=== PATIENT | female | born 1980 | race Caucasian/White ===

== ENCOUNTER → 2023-06-12 10:10 | Outpatient (REF) | payer OTHER, SELFPAY | LOC: WDC 10:10 | PROVIDERS: ATTENDING PHYSICIAN Nurse Practitioner Adult Health; FAMILY PHYSICIAN Internal Medicine | DX: N63.10 Unspecified lump in the right breast, unspecified quadrant (principal); N63.12 Unspecified lump in the right breast, upper inner quadrant | CPT/HCPCS: 76642; 77062; 77066 ==

== ENCOUNTER → 2024-07-29 12:59 | Outpatient (REF) | payer OTHER, SELFPAY | LOC: HWWDC 12:59 | PROVIDERS: ATTENDING PHYSICIAN Obstetrics & Gynecology Gynecology; FAMILY PHYSICIAN Hospitalist | DX: Z12.31 Encounter for screening mammogram for malignant neoplasm of breast (principal) | CPT/HCPCS: 77063; 77067 ==

== ENCOUNTER 2024-10-22 11:07 | Emergency (ER) | payer OTHER, SELFPAY ==
[2024-10-22 11:15] VITALS: BP 116/72
--- NOTE | 2024-10-22 12:06 | ED.GENMED ---
History of Present Illness
General
Chief Complaint: Back Pain
Source: patient
Exam Limitations: none
Time Seen by Provider: 10/22/24 12:04
Nursing documentation reviewed up to this point in time: agreed with
History of Present Illness
History of Present Illness:
Note:
CHIEF COMPLAINT(S)
Lower back pain and chest discomfort.
HISTORY OF PRESENT ILLNESS
The patient is a 43-year-old female who presented with a chief complaint of lower back pain that started after she got out of the shower to dress herself. She reported that the pain originated in her lower back and was described as feeling like
something was inside the knot. The pain has been affecting her ability to stand. Additionally, the patient experienced chest discomfort while in the shower, which was concerning enough that she was checked for a possible cardiac event. Despite this
symptom, she stated that it wasnt accompanied by exertion, as she was not engaging in physical activity at the time. The chest discomfort initially started around 10 AM and resolved on its own. She is worried about the potential severity.
Regarding treatment, a physical exam and an EKG were performed, which indicated that the symptoms were likely not cardiac-related. She was informed that while the initial exam and EKG did not show signs of a heart attack, further investigations
would be needed to rule out any serious conditions. It was mentioned that a possible disc issue might be causing nerve compression on the affected side, leading to her lower back symptoms.
The patient expressed concern about her neck, suggesting potential pre-existing cervical issues.
PLAN
- Perform blood tests to evaluate cardiac enzymes and rule out serious conditions.
- Obtain chest X-ray to investigate chest discomfort further.
- Evaluate the lower back with imaging for possible disc issues.
- Administer aspirin to address potential pain and provide preliminary treatment for cardiac concerns.
REVIEW OF SYSTEMS
- Cardiovascular: Chest discomfort that started at around 10 AM.
- Musculoskeletal: Lower back pain, described as a knot-like feeling, affecting the ability to stand.
PHYSICAL EXAM
- General: Female, no acute distress.
- Cardiovascular: Blood pressure 116/72, heart sounds S1 and S2 normal, no murmurs detected.
- Respiratory: No respiratory distress, clear breath sounds bilaterally.
- Abdominal: Soft, non-tender, non-distended.
- Musculoskeletal: Mild tenderness to palpation at the lower back, particularly on the left side. No step-offs or deformities. Difficulty ambulating.
- Pulses: Palpable in all extremities.
Nursing notes reviewed and vital signs reviewed.
DIFFERENTIAL DIAGNOSIS
The Differential Diagnosis includes, in no particular order and is not limited to:
1. Musculoskeletal strain
2. Herniated disc
3. Nerve compression syndrome
4. Myocardial infarction
5. Costochondritis
6. Anxiety or stress-related chest pain
7. Angina
8. Esophageal spasm
9. Gastroesophageal reflux disease (GERD)
10. Pulmonary embolism
EKG
My independent EKG interpretation is:
- Time of EKG: Not specified
- Rhythm: Normal
- Heart rate: 81 bpm
- NV interval: Normal
- QRS duration: Normal
- QT interval: Normal
- [place]: Normal
- Abnormalities: No signs of ischemia
- Overall assessment: Normal EKG
EKG
No Content
CARE-UPDATE
10/22/24 - 15:11
Patient shows improvement; initial labs including troponin were negative, and the EKG was normal. Chest X-ray and other imaging yielded no significant findings. Plan to repeat troponin test. If the repeat test is negative, the plan will involve
discharging the patient with instructions to follow up with primary care for routine evaluation.
Disposition:
SUMMARY OF ENCOUNTER
The patient, a 43-year-old female, presented to the emergency department with complaints of lower back pain that started after she dressed herself post-shower and chest discomfort experienced while showering. Patient evaluation included a physical
exam and an EKG which ruled out cardiac causes, suggesting a potential musculoskeletal issue. Due to chest discomfort, further investigations were pursued to rule out cardiac and other serious conditions. Initial labs and EKG were normal, and chest
X-ray showed no significant findings.
DISPOSITION
Discharge.
ASSESSMENT
The patient�s symptoms of back pain suggest potential sciatica or a musculoskeletal strain, likely stemming from a disc issue causing nerve compression. Chest pain does not appear to be cardiac-related based on initial labs and EKG results.
PLAN
- Conduct blood tests to assess cardiac enzymes to rule out any serious underlying conditions.
- Proceed with chest X-ray for a more detailed investigation of the chest discomfort.
- Imaging of the lower back for potential disc problems.
- Administer aspirin for managing pain and providing a preliminary treatment for any potential cardiac concerns.
INDEPENDENT REVIEW OF LABS AND INTERPRETATION OF TESTS
My independent review of EKG indicates a normal rhythm, normal heart rate (81 bpm), with no signs of ischemia, suggesting a normal result overall. Initial troponin levels were negative, supporting a non-cardiac cause for chest discomfort.
PROCEDURES
Performed a physical examination and an EKG on the patient.
PATIENT EDUCATION AND COUNSELING
Discussed that the initial test results show no immediate concern for a cardiac event and that further investigation will focus on potential musculoskeletal sources for back pain. The patient was advised about the importance of following up with her
primary care provider for further directed care.
FOLLOW-UP INSTRUCTIONS
Please call the office immediately to schedule a follow-up visit with your primary care provider for a routine evaluation.
MEDICATION RECONCILIATION
Aspirin was administered for managing pain.
MEDICAL DECISION MAKING
-Complexity of Data Reviewed: Chronic conditions affecting care include past musculoskeletal issues. The differential diagnosis list includes musculoskeletal strain, herniated disc, nerve compression syndrome, myocardial infarction, costochondritis,
anxiety or stress-related chest pain, angina, esophageal spasm, GERD, pulmonary embolism.
-Data:
Category 1
My independent interpretation of EKG indicates a normal rhythm with no signs of ischemia.
Clinical information obtained from patient history and examination.
-Risk:
Consideration of Admission/Observation: Escalation of care including admission/observation was considered given the complexity and risk of the patients presenting complaint, exam findings, and/or their underlying comorbidities. However, ultimately I
feel the patient is safe for outpatient management with close follow-up. Reasoning: Work-up reassuring, does not reveal any acute life/organ-threatening processes, patients symptoms well controlled upon reevaluation, reexamination is reassuring,
vitals are stable, patient agreeable with discharge, reliable for follow-up.
DIAGNOSIS
- Sciatica, left side (M54.32)
- Chest pain, unspecified (R07.9)
Past History
Past History
ED Past Medical History: Other (leg pain ) and Other (Migraines)
ED Past Surgical History: Gynecological (D&C)
Social History
Tobacco: Non-smoker
Alcohol: Occasional
Drug: None
Personal:
Living: with family
Employment: Employed
Family History
Family History: Other
Phy Exam
Physical Exam
Physical Exam:
.
Course
Orders/Labs/Results
Orders:
Orders
10/22/24 11:19
Electrocardiogram (*1) Urgent
Reason for Study: Other
Other Reason for Exam: back
EKG- Treatment ONCE
10/22/24 12:14
IV Insert/Care/Rem.- Treatment PRN
Pulse Ox/cont/shift [RESP] Stat
Quantity: 1
10/22/24 12:18
Cardiac Monitoring- Treatment ONCE
10/22/24 12:48
Complete Blood Count/With Diff Urgent
Comprehensive Metabolic Panel Urgent
Troponin I Urgent
10/22/24 13:09
Aspirin 325 mg PO NOW STA
10/22/24 14:20
Ketorolac [Toradol] 15 mg IV NOW STA
CR Chest - 2 Views Urgent
Comment:
Reason For Exam: left side chest/back pain
Lumbar Spine Complete, 4 View [CR Lumbar Spine Comp Min 4 Vw*] Urgent
Comment:
Reason For Exam: left side low back pain
10/22/24 15:24
Troponin I Urgent
Abnormal Lab Results
10/22/24
12:48
BUN 31 H mg/dl
(7-17)
Glucose 102 H mg/dl
(70-99)
10/22/24 12:48
10/22/24 12:48
Vital Signs
Initial and Last Documented VS:
Initial Vital Signs
Temp Pulse Resp BP Pulse Ox
97.8 F 108 16 116/72 98
10/22/24 11:15 10/22/24 11:15 10/22/24 11:15 10/22/24 11:15 10/22/24 11:15
Last Documented Vital Signs
Temp Pulse Resp BP Pulse Ox
97.8 F 60 16 120/71 99
10/22/24 11:15 10/22/24 15:38 10/22/24 15:38 10/22/24 15:38 10/22/24 15:38
*Pulse Oximetry
SaO2: 98
Oxygen Mode of Delivery: Room air
Patient hypoxic: no
*Critical Care Note
Total Time (30-74mins, 75-104mins- exclusive of procedures): Not Applicable
ED Attending Note
-
Portions of this chart may have been created with voice recognition software.� Occasional wrong word or��sound alike� substitutions may have occurred due to the inherent limitations of voice recognition software.
Discharge Plan
Departure
Patient Disposition: Home (Routine Discharge)
Date of Disposition: 10/22/24
Time of Disposition: 16:00
Patient with high blood pressure during this ER visit?: No
Condition: Good
Discharge Problem:
Sciatica, Chest pain
Instructions: Sciatica (DC), Upper Back Pain (DC)
Prescriptions:
No Action
acetaminophen [Tylenol] 325 mg Tablet
325 mg PO DAILYPRN PRN (Reason: mild pain)
Theragen Tablet
1 tab PO DAILY
amoxicillin 500 mg Tablet
500 mg PO TID
Patient Comments:
12/31/22 filled on 12/26/22 #30
rizatriptan 10 mg Tablet,Disintegrating
10 mg PO DAILYPRN PRN (Reason: migraines)
ibuprofen 200 mg Tablet
800 mg PO Q6H
Rx Instructions:
12/31/22 patient is taking this everday due to a dental abcess
diazepam 5 mg Tablet
5 mg PO HSPRN PRN (Reason: anxiety)
Patient Comments:
12/31/22 filled on 11/26/22 #30
pantoprazole [Protonix] 40 mg tablet,delayed release (DR/EC)
40 mg PO DAILY 28 Days Qty: 28 0RF
Referrals:
Leonard Phillips MD [Family Provider, Internal Medicine] - Call in 1-3 days for appt
Interventions
Interventions:
*Risk Screen - Suicide Last Done: 10/22/24 11:15
*Neglect/Abuse Screening Last Done: 10/22/24 11:15
ED-Musculoskeletal Assessment Last Done: 10/22/24 12:58
Discharge Date and Time
Print Language: MALAY
[2024-10-22 12:55] LABS: Hematocrit 41.2 % (37.0-47.0); Hemoglobin 13.9 g/dL (12.0-16.0); Mean Corp Hgb Conc. 33.7 g/dL (33.0-37.0); Mean Corpuscular Volume 91.6 fL (81.0-99.0); Nucleated Red Blood Cells % 0 %; Platelet Count 216 10^3/uL (130-400); Red Cell Dist. Width 11.9 % (11.5-14.5)
[2024-10-22 13:18] LABS: ALT (SGPT) 23 U/L (0-35); AST (SGOT) 30 U/L (14-36); Albumin 4.7 g/dl (3.5-5.0); Alkaline Phosphatase 40 U/L (38-126); Blood Urea Nitrogen 31 mg/dl (7-17); Calcium 9.6 mg/dl (8.4-10.2); Carbon Dioxide 28 mmol/L (22-30); Chloride 104 mmol/L (98-107); Glucose 102 mg/dl (70-99); Potassium 4.7 mmol/L (3.5-5.1); Sodium 137 mmol/L (135-145); Total Protein 7.3 g/dl (6.3-8.2); eGFR > 60.00
[2024-10-22 13:21] LABS: Troponin I < 0.012 ng/ml
[2024-10-22 13:24] VITALS: BP 108/73
[2024-10-22] MEDS: ASPIRIN 325 MG PO (13:25)
[2024-10-22] MEDS: TORADOL 15 MG IV (14:57)
[2024-10-22 15:38] VITALS: BP 120/71
[2024-10-22 15:57] LABS: Troponin I < 0.012 ng/ml
== END 2024-10-22 16:30 | disposition home or self-care (01) ==
LOC: EMR 11:07
PROVIDERS: EMERGENCY PHYSICIAN Emergency Medicine; FAMILY PHYSICIAN Internal Medicine
DX: M54.42 Lumbago with sciatica, left side (principal)
CPT/HCPCS: 99283; 96374; 71046; 72110; 80053; 84484; 85025; 93005

== ENCOUNTER → 2024-12-23 06:48 | Outpatient (REF) | payer OTHER, SELFPAY | LOC: PAVMRI 06:48 | PROVIDERS: ATTENDING PHYSICIAN Orthopaedic Surgery; FAMILY PHYSICIAN Internal Medicine | DX: M54.2 Cervicalgia (principal); M25.512 Pain in left shoulder | CPT/HCPCS: 72141; 73221 ==

== ENCOUNTER → 2025-01-20 12:42 | Outpatient (REF) | payer OTHER, SELFPAY | LOC: WDC 12:42 | PROVIDERS: ATTENDING PHYSICIAN Obstetrics & Gynecology Gynecology; FAMILY PHYSICIAN Internal Medicine | DX: R92.30 Dense breasts, unspecified (principal) | CPT/HCPCS: 76641 ==